=== PATIENT | male | born 2000 | race Caucasian/White ===

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

== ENCOUNTER 2020-07-28 16:20 | Emergency (ER) | payer BC, OTHER ==
[2020-07-28 16:50] VITALS: BP 133/83; PULSE 101; TEMP 98; BMI 25.8
[2020-07-28] MEDS ORDERED: IBUPROFEN 600 MG TABLET (FP) PO ONE ×3 (18:18→18:23)
== END 2020-07-28 18:26 | disposition home or self-care (01) ==
LOC: FER 16:20
DX: S69.91XA Unspecified injury of right wrist, hand and finger(s), initial encounter (principal)
CPT/HCPCS: 99284-25

== ENCOUNTER 2020-10-06 19:17 | Emergency (ER) | payer OTHER ==
[2020-10-06 19:22] VITALS: BP 125/82; PULSE 89; TEMP 99.1; BMI 25.8
== END 2020-10-06 19:57 | disposition home or self-care (01) ==
LOC: FER 19:17
DX: S60.511A Abrasion of right hand, initial encounter (principal)
CPT/HCPCS: 99282-25

== ENCOUNTER 2020-11-22 11:28 | Emergency (ER) | payer OTHER ==
[2020-11-22 11:38] VITALS: BP 135/74; PULSE 80; TEMP 98.3; BMI 25.8
[2020-11-22] MEDS ORDERED: IBUPROFEN 400 MG TABLET (FP) PO ONE ×2 (11:45→11:48)
== END 2020-11-22 12:24 | disposition home or self-care (01) ==
LOC: FER 11:28
DX: M25.571 Pain in right ankle and joints of right foot (principal)
CPT/HCPCS: 73610-TC-RT-FY; 73630-TC-RT-FY; 99283-25

== ENCOUNTER 2021-05-10 09:58 | Emergency (ER) | payer OTHER ==
[2021-05-10 10:12] VITALS: BP 114/73; PULSE 78; TEMP 99.3; BMI 25.8
[2021-05-10] MEDS ORDERED: IBUPROFEN 400 MG TABLET (FP) PO ONE ×2 (10:24→10:26)
[2021-05-10] MEDS ORDERED: LIDOCAINE 5% TOPICAL PATCH TP ONE (10:24)
[2021-05-10] MEDS ORDERED: LIDOCAINE 5% TOPICAL PATCH ONE (10:27)
== END 2021-05-10 10:43 | disposition home or self-care (01) ==
LOC: FER 09:58
DX: M54.89 Other dorsalgia (principal); V49.40XA Driver injured in collision with unspecified motor vehicles in traffic accident, initial encounter
CPT/HCPCS: 99283-25

== ENCOUNTER 2021-09-05 17:18 | Emergency (ER) | payer OTHER ==
[2021-09-05] MEDS ORDERED: IBUPROFEN 400 MG TABLET (FP) PO ONE ×2 (17:21→17:28)
[2021-09-05 17:33] VITALS: BP 130/74; PULSE 87; TEMP 98.9; BMI 25.8
== END 2021-09-05 18:10 | disposition home or self-care (01) ==
LOC: FER 17:18
DX: S86.912A Strain of unspecified muscle(s) and tendon(s) at lower leg level, left leg, initial encounter (principal); M54.50 Low back pain, unspecified; Y99.8 Other external cause status
CPT/HCPCS: 99283-25

== ENCOUNTER 2022-02-13 16:31 | Emergency (ER) | payer OTHER ==
[2022-02-13 16:47] VITALS: BP 125/78; PULSE 89; TEMP 98.3; BMI 24.3
[2022-02-13] MEDS ORDERED: IBUPROFEN 600 MG TABLET (FP) PO ONE ×2 (16:53→17:08)
== END 2022-02-13 17:27 | disposition home or self-care (01) ==
LOC: FER 16:31
DX: S46.811A Strain of other muscles, fascia and tendons at shoulder and upper arm level, right arm, initial encounter (principal)
CPT/HCPCS: 99283-25

== ENCOUNTER 2022-03-05 14:08 | Emergency (ER) | payer OTHER ==
[2022-03-05 14:20] VITALS: BP 128/79; PULSE 66; RESP 16; TEMP 97.4; BMI 24.3
== END 2022-03-05 14:57 | disposition home or self-care (01) ==
LOC: FER 14:08
DX: S63.641A Sprain of metacarpophalangeal joint of right thumb, initial encounter (principal)
CPT/HCPCS: 73140-TC-RT-FY; 99284-25